=== PATIENT | female | born 1970 | race American Indian/Alaskan Native ===

== ENCOUNTER 2018-11-12 09:17 | Inpatient (IN) | payer OTHER ==
[2018-11-12 10:16] LABS: Basophils # (Auto) 0.1 K/mm3 (0.0-0.1); Basophils % (Auto) 1.3 % (0.0-1.8); Eosinophils # (Auto) 0.3 K/mm3 (0.0-0.4); Eosinophils % (Auto) 5.1 % (0.0-4.3); Hematocrit 38.7 % (30.3-42.9); Hemoglobin 13.6 gm/dl (10.1-14.3); Lymphocytes # (Auto) 2.3 K/mm3 (1.2-5.4); Lymphocytes % (Auto) 35.9 % (13.4-35.0); Mean Corpuscular HGB Conc 35 % (30-34); Mean Corpuscular Volume 90 fl (79-97); Monocytes # (Auto) 0.4 K/mm3 (0.0-0.8); Platelet Count 367 K/mm3 (140-440); Red Blood Count 4.31 M/mm3 (3.65-5.03); Red Cell Distribution Width 13.2 % (13.2-15.2)
--- NOTE | 2018-11-12 11:09 | Anesthesia Consultation ---
Anesthesia Consult and Med Hx Date of service: 11/12/18 - Airway Anesthetic Teeth Evaluation: Good ROM Head & Neck: Adequate Mental/Hyoid Distance: Adequate Mallampati Class: Class III Intubation Access Assessment: Possibly Difficult - Pulmonary Exam CTA: Yes - Cardiac Exam Cardiac Exam: RRR - Pre-Operative Health Status ASA Pre-Surgery Classification: ASA1 Proposed Anesthetic Plan: General Nerve Block: TAP - Pulmonary Hx Smoking: No Hx Sleep Apnea: No - Cardiovascular System Hx Hypertension: No Hx Heart Attack/AMI: No - Central Nervous System CVA: No Hx Psychiatric Problems: No - Gastrointestinal Hx Gastroesophageal Reflux Disease: No - Endocrine Hx Renal Disease: No Hx Liver Disease: No Hx Insulin Dependent Diabetes: No Hx Thyroid Disease: No - Other Systems Hx Alcohol Use: No Hx Obesity: No - Additional Comments Anesthesia Medical History Comments: No prior GA. No FHx anesthetic complications.
[2018-11-17] MEDS ORDERED: VERSED IV NR (06:00)
[2018-11-17] MEDS ORDERED: TRANSDERM-SCOP TD NR (06:00)
[2018-11-17] MEDS ORDERED: NEURONTIN PO NR (06:00)
[2018-11-17] MEDS ORDERED: SUBLIMAZE IV PRN (06:00)
[2018-11-17] MEDS ORDERED: LACTATED RINGERS 1,000 ML IV SCH (06:00)
--- NOTE | 2018-11-17 08:49 | History and Physical Report ---
History of Present Illness Date of examination: 11/17/18 Date of admission: 11/17/18 08:08 Chief complaint: Symptomatic uterine fibroids History of present illness: Pt is a 48yo BF G0 LMP 10/18/18 presents for surgical evaluation and treatment of uterine fibroids. She complains of pelvic pain and prolonged heavy vaginal bleeding. Pelvic u/s showed an enlarged uterus measuring 12.7 cm with several large fibroids - the largest 5 x 4.2 x 4cm. She desires uterine conservation and is therefore scheduled for an Abdominal myomectomy. Past History Past Medical History: no pertinent history Past Surgical History: other (oral surgery) [employer] History: fibroids Social history: no significant social history, single Medications and Allergies Allergies Allergy/AdvReac Type Severity Reaction Status Date / Time No Known Allergies Allergy Unverified 11/11/18 10:52 Home Medications Medication Instructions Recorded Confirmed Last Taken Type Loratadine [Claritin] 10 mg PO DAILY PRN 11/11/18 11/11/18 Unknown History Active Meds: Active Medications Celecoxib (Celebrex) 200 mg PO PREOP NR Stop: 11/17/18 23:59 Fentanyl (Sublimaze) 100 mcg IV ONCE PRN PRN Reason: sedation for nerve block Stop: 11/17/18 23:59 Gabapentin (Neurontin) 300 mg PO PREOP NR Stop: 11/17/18 23:59 Lactated Ringer's (Lactated Ringers) 1,000 mls @ 100 mls/hr IV DIRECT YOVANI Stop: 11/17/18 23:59 Midazolam HCl (Versed) 2 mg IV PREOP NR Stop: 11/17/18 23:59 Scopolamine (Transderm-Scop) 1 each TD PREOP NR Stop: 11/20/18 05:59 Review of Systems All systems: negative - Vital Signs Vital signs: Vital Signs Temp Pulse Resp BP Pulse Ox 97.8 F 97 H 20 152/94 100 11/12/18 09:50 11/12/18 09:50 11/12/18 09:50 11/12/18 09:50 11/12/18 09:50 Temp Pulse Resp BP Pulse Ox 97.8 F 97 H 20 152/94 100 11/12/18 09:50 11/12/18 09:50 11/12/18 09:50 11/12/18 09:50 11/12/18 09:50 - Physical Exam Breasts: Positive: deferred Cardiovascular: Regular rate Lungs: Positive: Clear to auscultation Abdomen: Positive: normal appearance Genitourinary (Female): Positive: normal external genitalia Uterus: Positive: enlarged Extremities: Positive: normal Results Result Diagrams: 11/12/18 10:05 All other labs normal. Ultrasound: report reviewed Assessment and Plan - Patient Problems (1) Uterine fibroid Onset Date: 11/17/18 Current Visit: Yes Status: Acute Qualifiers: Uterine leiomyoma location: intramural, submucous, and subserous Qualified Code(s): D25.1 - Intramural leiomyoma of uterus; D25.0 - Submucous leiomyoma of uterus; D25.2 - Subserosal leiomyoma of uterus Plan to address problem: A: Symptomatic uterine fibroids Menorrhagia P: Admit for an Abdominal myomectomy (2) Menorrhagia with irregular cycle Onset Date: 11/17/18 Current Visit: Yes Status: Acute
[2018-11-17] MEDS ORDERED: SUBLIMAZE ONE ×3 (08:56→12:03)
[2018-11-17] MEDS ORDERED: DECADRON ONE (08:56)
[2018-11-17] MEDS ORDERED: XYLOCAINE MPF 2% ONE (08:56)
[2018-11-17] MEDS ORDERED: ZEMURON IV ONE (08:56)
[2018-11-17] MEDS ORDERED: TORADOL ONE (08:56)
[2018-11-17] MEDS ORDERED: ZOFRAN ONE (08:56)
[2018-11-17] MEDS ORDERED: DILAUDID ONE (08:56)
[2018-11-17] MEDS ORDERED: DIPRIVAN 10 MG/ML IV ONE (08:57)
[2018-11-17] MEDS ORDERED: ANCEF/STERILE WATER 2 GM/20 ML 2 GM/20 ML SYRINGE IV NR (09:00)
[2018-11-17] MEDS ORDERED: NEURONTIN ONE (09:14)
[2018-11-17] MEDS ORDERED: TRANSDERM-SCOP TD ONE (09:14)
[2018-11-17] MEDS ORDERED: LACTATED RINGERS 1,000 ML ONE (09:14)
[2018-11-17] MEDS ORDERED: ACD-A 0 ML IV ONE (09:27)
[2018-11-17] MEDS ORDERED: METHYLENE BLUE ONE (09:27)
[2018-11-17] MEDS ORDERED: NACL 0.9% 100 ML ONE (09:27)
[2018-11-17] MEDS ORDERED: Vasostrict ONE (09:28)
[2018-11-17] MEDS ORDERED: VERSED ONE (09:38)
[2018-11-17] MEDS ORDERED: XYLOCAINE 1% 20 mL ONE (09:39)
[2018-11-17] MEDS ORDERED: MARCAINE-EPI/PF 0.5%-1:200,000 INFILTRATI ONE (09:40)
[2018-11-17] MEDS ORDERED: DILAUDID IV PRN (11:14)
[2018-11-17] MEDS ORDERED: ZOFRAN IV PRN ×2 (11:14→12:45)
--- NOTE | 2018-11-17 11:14 | Anesthesia Day of Surgery ---
Anesthesia Day of Surgery - Day of Surgery Patient Examined: Yes Patient H&P Reviewed: Yes Patient is NPO: Yes
[2018-11-17] MEDS ORDERED: NACL 0.9% IV ONE (11:30)
[2018-11-17] MEDS ORDERED: Vasostrict IM ONE (11:30)
[2018-11-17] MEDS ORDERED: BLOXIVERZ ONE (11:43)
[2018-11-17] MEDS ORDERED: ROBINUL ONE (11:43)
[2018-11-17] MEDS ORDERED: TYLENOL PO PRN (12:45)
[2018-11-17] MEDS ORDERED: REGLAN IV PRN (12:45)
[2018-11-17] MEDS ORDERED: SODIUM CHLORIDE FLUSH SYRINGE 10 ML IV PRN (12:45)
[2018-11-17] MEDS ORDERED: PERCOCET 5/325 PO PRN (12:45)
[2018-11-17] MEDS ORDERED: NORCO 5/325 PO PRN (12:45)
[2018-11-17] MEDS ORDERED: NARCAN 0.4 MG/1 ML IV PRN (12:45)
[2018-11-17] MEDS ORDERED: MILK OF MAGNESIA PO PRN (12:45)
--- NOTE | 2018-11-17 17:21 | Post Anesthesia Evaluation ---
- Post Anesthesia Evaluation Patient Participated: Yes Airway Patent: Yes Stable Respiratory Function: Yes Nausea/Vomiting: No Temp > 96.8F: Yes Pain Manageable: Yes Adequeate Hydration: No Anesthesia Complications: No Block Receding Appropriately: Not Applicable Patient on Ventilator: No
--- NOTE | 2018-11-17 19:03 | Operative Report ---
Operative Report Operative Report: Date of procedure: 11/17/2018 Pre-operative diagnosis: 1. Symptomatic uterine fibroids 2. Menorrhagia Post-operative diagnosis: Same Procedure name(s): Abdominal myomectomy Surgeon: Connor Parker MD Marking Room Supervisor: Ramona Young CSA Anesthesia: LEAH Block followed by general endotracheal intubation EBL: 100 mL's Findings: A 14-16 week size multi-myomatous uterus with normal tubes and ovaries bilaterally. Procedure: After the patient was correctly identified, she was prepped and draped in usual sterile fashion and placed in the dorsolithotomy position. A skin knife is used to make a transverse skin incision. The incision was extended down to layer of fascia which is nicked in the midline and extended laterally using the Bovie cautery. The rectus muscles were dissected off the rectus fascia both superiorly and inferiorly, the rectus bellies midline and the peritoneum was entered under direct visualization. Exploration of the pelvic organs found the uterus to be approximately 14-16 weeks size with multiple fibroids. Pitressin solution was used to infiltrate the serosal layer of the uterus. The bowels were packed back. An anterior incision was made through the uterus revealing a large fibroid which was removed using both sharp and blunt dissection. 5 large and 5 small fibroids were removed using similar fashion. After all the fibroids removed the procedure was considered complete. The uterine incision was re-approximated using 2-0 Monocryl suture in 3 layers, the serosal layer closed in an interlocking running fashion. Copious amounts of irrigation was then performed. The Tisseel sealant was sprayed across the serosal layer of the uterus and excellent hemostasis was assured. Interceed was also placed over the serosal layer, and the uterus was returned to his normal anatomical position. The peritoneum was then re-approximated using 3-0 Vicryl suture in a running interlocking fashion, and the rectus muscles were also loosely re-approximated using 0 Vicryl suture in a figure configuration. The fascia was then closed using 0 Vicryl suture in a running interlocking fashion, the subcutaneous layer re-approximated using 3-0 Vicryl suture and the skin edges re-approximated using 4-0 Vicryl suture in a sub-cuticular fashion. The patient tolerated the procedure well and was transported to recovery in stable condition.
[2018-11-17] MEDS: TORADOL IV SCH (21:16)
[2018-11-17] MEDS: COLACE PO SCH (21:16)
[2018-11-17] MEDS: ANCEF/NS 1 GM/50 ML 1 GM/50 ML BAG IV SCH (21:17)
[2018-11-17] MEDS: D5LR 1,000 ML IV SCH (21:18)
[2018-11-18] MEDS: ANCEF/NS 1 GM/50 ML 1 GM/50 ML BAG IV SCH (05:09)
[2018-11-18] MEDS: TORADOL IV SCH ×4 (05:09→18:12)
[2018-11-18] MEDS: D5LR 1,000 ML IV SCH ×2 (06:21→13:10)
[2018-11-18 06:49] LABS: Hematocrit 34.2 % (30.3-42.9); Hemoglobin 11.5 gm/dl (10.1-14.3)
--- NOTE | 2018-11-18 08:58 | Progress Note ---
Assessment and Plan - Patient Problems (1) Uterine fibroid Onset Date: 11/17/18 Current Visit: Yes Status: Resolved Qualifiers: Uterine leiomyoma location: intramural, submucous, and subserous Qualified Code(s): D25.1 - Intramural leiomyoma of uterus; D25.0 - Submucous leiomyoma of uterus; D25.2 - Subserosal leiomyoma of uterus (2) Menorrhagia with irregular cycle Onset Date: 11/17/18 Current Visit: Yes Status: Resolved (3) Status post myomectomy Onset Date: 11/18/18 Current Visit: Yes Status: Resolved Plan to address problem: A: S/P Abdominal myomectomy - POD #1 Doing well P: Anticipate discharge later today. Subjective - Subjective Date of service: 11/18/18 Principal diagnosis: s/p Abdominal myomectomy - POD #1 Interval history: Pt is feeling well s/p an Abdominal myomectomy. She is tolerating a liquid diet without nausea or vomiting, ambulating and voiding without difficulty. Patient reports: appetite normal, voiding normally, pain well controlled, ambulating normally, no dizzy ambulation, no flatus, no nauseated Objective - Vital Signs Latest vital signs: Vital Signs Temp Pulse Resp Resp BP BP Pulse Ox 11/18/18 04:05 98.7 F 66 19 118/73 11/18/18 00:00 98.8 F 74 19 102/78 11/17/18 20:00 98.6 F 98 H 19 109/79 11/17/18 16:39 97.5 F L 99 H 18 127/83 11/17/18 14:21 20 11/17/18 13:50 97.7 F 72 20 131/86 11/17/18 13:26 16 11/17/18 13:22 14 132/78 100 11/17/18 13:15 66 13 130/81 100 11/17/18 13:10 68 18 131/82 100 11/17/18 13:05 70 16 131/78 100 11/17/18 13:00 68 16 141/87 100 11/17/18 12:55 71 16 142/89 100 11/17/18 12:52 98.2 F 77 14 146/82 100 11/17/18 09:56 104 H 15 139/94 99 11/17/18 09:51 87 11 L 129/88 99 11/17/18 09:41 89 15 143/88 98 11/17/18 09:14 16 Intake and Output 11/17/18 11/18/18 11/18/18 22:59 06:59 14:59 Intake Total 550 1000 Output Total 1900 1900 Balance -1350 -900 Intake: IV 50 1000 ANCEF/NS 1 GM/50 ML 1 gm 50 In 50 ml @ 100 mls/hr IV Q8H YOVANI Rx#:[id number] D5lr 1,000 ml @ 125 mls/ 1000 hr IV DIRECT YOVANI Rx#: [id number] Oral 200 Intake, Free Water 300 Output: Urine 1899 1900 Indwelling Catheter 1899 1900 Other: Total, Intake Amount 200 Total, Output Amount 1500 900 Voiding Method Indwelling Catheter - Exam Abdomen: Present: normal appearance, soft Extremities: Present: normal Incision: Present: normal, dry, intact, dressed - Labs Labs: Laboratory Tests 11/12/18 11/12/18 11/17/18 10:05 10:05 08:40 WBC 6.3 RBC 4.31 Hgb 13.6 Hct 38.7 MCV 90 MCH 32 MCHC 35 H RDW 13.2 Plt Count 367 Lymph % (Auto) 35.9 H Barbour % (Auto) 7.0 Eos % (Auto) 5.1 H Baso % (Auto) 1.3 Lymph # 2.3 Barbour # 0.4 Eos # 0.3 Baso # 0.1 Seg Neutrophils % 50.7 Seg Neutrophils # 3.2 HCG, Qual Negative Blood Type B POSITIVE Antibody Screen Negative 11/18/18 06:09 WBC RBC Hgb 11.5 Hct 34.2 MCV MCH MCHC RDW Plt Count Lymph % (Auto) Barbour % (Auto) Eos % (Auto) Baso % (Auto) Lymph # Barbour # Eos # Baso # Seg Neutrophils % Seg Neutrophils # HCG, Qual Blood Type Antibody Screen
[2018-11-18] MEDS: COLACE PO SCH (09:49)
--- NOTE | 2018-11-18 18:02 | Discharge Summary ---
Providers - Providers Date of Admission: 11/17/18 08:08 Date of discharge: 11/18/18 Attending physician: ANDRE LOWE Primary care physician: JOHN KIM MD Hospitalization Reason for admission: other (Symptomatic uterine fibroids; Menorrhagia) Procedure: other (Abdominal myomectomy) Episiotomy: none Laceration: none Incision: normal, dry, intact, dressed Other procedures: none complications: none Discharge diagnosis: other (s/p Abdominal myomectomy) Hospital course: Pt is a 48yo BF G0 LMP 10/18/18 who presented for surgical evaluation and treatment of uterine fibroids. She complained of pelvic pain and prolonged heavy vaginal bleeding. Pelvic u/s showed an enlarged uterus measuring 12.7 cm with several large fibroids - the largest 5 x 4.2 x 4cm. She underwent an uncomplicated Abdominal myomectomy - removing 5 large fibroids and 5 small fibroids - and tolerated the procedure well. By POD #1 she was tolerating a reg diet without nausea or vomiting, ambulating and voiding without difficulty. She was therefore discharged to home on POD #1 in stable condition. Condition at discharge: Good Disposition: DC-01 TO HOME OR SELFCARE - Discharge Diagnoses (1) Uterine fibroid Status: Resolved Qualifiers: Uterine leiomyoma location: intramural, submucous, and subserous Qualified Code(s): D25.1 - Intramural leiomyoma of uterus; D25.0 - Submucous leiomyoma of uterus; D25.2 - Subserosal leiomyoma of uterus (2) Menorrhagia with irregular cycle Status: Resolved (3) Status post myomectomy Status: Resolved Plan - Discharge Medications Prescriptions: Ibuprofen [Motrin] 800 mg PO Q8HR PRN #30 tablet PRN Reason: Pain, Mild (1-3) oxyCODONE /ACETAMINOPHEN [Percocet 5/325 mg] 1 tab PO Q6H PRN #30 tablet PRN Reason: Pain, Moderate (4-6) - Provider Discharge Summary Activity: routine, no sex for 6 weeks, no heavy lifting 4 weeks, no strenuous exercise Diet: routine Instructions: routine Additional instructions: [] Smoking cessation referral if applicable(refer to patient education folder for contact #) [] Refer to [facility]'s [facility] Booklet Call your doctor immediately for: * Fever > 100.5 * Heavy vaginal bleeding ( >1 pad per hour) * Severe persistent headache * Shortness of breath * Reddened, hot, painful area to leg or breast * Drainage or odor from incision. * Keep incision clean and dry at all times and follow doctor's instructions regarding bathing/showering - Follow up plan Follow up: JOHN KIM MD [Primary Care Provider] - 14 Days ANDRE LOWE MD [Staff Physician] - 14 Days
[2018-11-18 19:45] VITALS: BP 110/72
== END 2018-11-18 19:35 | disposition home or self-care (01) | DRG 743 ==
LOC: UNDOADMIN 09:17 → 3A 09:17 → OB 11-17 13:07
PROVIDERS: ADMIT Obstetrics & Gynecology; ATTEND Obstetrics & Gynecology
PROC: 0UB90ZZ Excision of Uterus, Open Approach (ICD-10-PCS; principal; 2018-11-17)
DX: D25.1 Intramural leiomyoma of uterus (principal); D25.2 Subserosal leiomyoma of uterus; D25.0 Submucous leiomyoma of uterus; N92.1 Excessive and frequent menstruation with irregular cycle; Z79.899 Other long term (current) drug therapy
CPT/HCPCS: 36415; 64450; 84703; 85014; 85018; 85025; 86850; 86900; 86901; 88305; G0378; C1765; C9250; J0690; J1100; J1170; J1885; J2250; J2405; J2704; J2710; J3010; J7120; J7121; Q9968